=== PATIENT | male | born 1980 | race African-American/Black ===

== ENCOUNTER 2019-10-19 22:28 | Emergency (ER) | payer OTHER ==
[~2019-10-19] VITALS: Ht 190.5 cm; Wt 111.1 kg
[2019-10-19 22:30] VITALS: Ht 190.5 cm; Wt 111.1 kg
[2019-10-19 23:53] LABS: BASOPHIL % 0.5 % (0-2); CALCIUM 8.9 mg/dL (8.5-10.1); CARBON DIOXIDE 25.6 mmol/L (21-32); CHLORIDE SERUM 104 mmol/L (98-107); CREATININE SERUM 0.9 mg/dL (0.7-1.3); GFR1 > 60 mL/min; GLUCOSE SERUM 88 mg/dL (74-106); PLATELET COUNT 232 x10^3mcL (130-400); POTASSIUM SERUM 3.5 mmol/L (3.5-5.1); SODIUM SERUM 141 mmol/L (136-145)
[2019-10-19 23:58] LABS: ALBUMIN 3.3 g/dL (3.4-5.0); ALKALINE PHOSPHATASE 45 U/L (46-116); ALT/SGPT 57 U/L (16-63); AST/SGOT 34 U/L (15-37); BILIRUBIN TOTAL 0.2 mg/dL (0.20-1.00); CHOLESTEROL 199 mg/dL (<200); HDL CHOLESTEROL 32 mg/dL (40-60); TOTAL PROTEIN, SERUM 6.7 g/dL (6.4-8.2); URIC ACID 4.8 mg/dL (3.5-7.2)
[2019-10-20 00:47] VITALS: BP 163/113
== END 2019-10-20 00:47 | disposition home or self-care (01) ==
LOC: ED 22:28
PROVIDERS: Emergency Medicine
DX: R07.89 Other chest pain (principal); J45.909 Unspecified asthma, uncomplicated
CPT/HCPCS: 36415; J1885; Q0092